=== PATIENT | female | born 1990 | race Caucasian/White ===

== ENCOUNTER → 2024-02-18 12:54 | Outpatient (CLI) | payer BC, SELFPAY | PROVIDERS: Family Provider Family Medicine; Visit Provider Physician Assistant Surgical | DX: R30.0 Dysuria (principal); O47.9 False labor, unspecified | CPT/HCPCS: 87086; 87210 ==

== ENCOUNTER 2024-03-03 22:38 | Outpatient (CLI) | payer OTHER, SELFPAY | END 2024-03-03 23:53 | disposition home or self-care (01) | LOC: OB 03-06 14:59 | PROVIDERS: Family Provider Family Medicine; Referring Provider Student in an Organized Health Care Education/Training Program; Visit Provider Student in an Organized Health Care Education/Training Program | DX: O60.02 Preterm labor without delivery, second trimester (principal); Z3A.27 27 weeks gestation of pregnancy | CPT/HCPCS: 59025; G0378; G0379 ==